=== PATIENT | male | born 1940 | race Caucasian/White ===

== ENCOUNTER 2018-02-04 11:53 | Outpatient (REF) | payer SELFPAY ==
[2018-02-05 11:59] LABS: Measles IgG Antibody Positive; Mumps Antibody IgG Positive; Rubella IgG Ab (UVM) Positive; Varicella IgG Antibody Positive
[2018-02-05 12:53] LABS: Hepatitis B Surface Ab Positive
[2018-02-08 15:18] LABS: TB Interpretation Negative (NEGAT)
== END 2018-02-04 12:13 ==
LOC: LBO 11:53
PROVIDERS: PCP Internal Medicine; Visit Provider Nurse Practitioner Family
DX: Z02.1 Encounter for pre-employment examination (principal); Z01.84 Encounter for antibody response examination; Z11.1 Encounter for screening for respiratory tuberculosis
CPT/HCPCS: 36415; 86706; 86787; 86480; 86735; 86762; 86765

== ENCOUNTER 2018-04-12 16:20 | Outpatient (REF) | payer MEDICARE, OTHER, SELFPAY ==
[2018-04-12 18:55] LABS: ALT 58 U/L (12-78); Anion Gap 8.9 mmol/L (3-11); BUN 21 mg/dL (7-18); CO2 28.1 mmol/L (21.0-32.0); CREATININE 1.21 mg/dL (0.70-1.30); Calcium 9.4 mg/dL (8.5-10.1); Chloride 102 mmol/L (98-107); Glucose 120 mg/dL (70-100); LDL CHOLESTEROL 91 mg/dL (<100); Sodium 139 mmol/L (136-145)
== END 2018-04-12 16:40 ==
LOC: NCHCN 16:20
PROVIDERS: PCP Internal Medicine; Visit Provider Internal Medicine
DX: E11.9 Type 2 diabetes mellitus without complications (principal); I10 Essential (primary) hypertension; E78.5 Hyperlipidemia, unspecified
CPT/HCPCS: 80048; 83721; 84460

== ENCOUNTER 2019-06-22 15:49 | Outpatient (REF) | payer MEDICARE, OTHER, SELFPAY ==
[2019-06-22 20:38] LABS: ALT 27 U/L (16-63); Anion Gap 8.3 mmol/L (3-11); BUN 19 mg/dL (7-18); CO2 29.7 mmol/L (21.0-32.0); CREATININE 1.07 mg/dL (0.70-1.30); Calcium 9.2 mg/dL (8.5-10.1); Chloride 101 mmol/L (98-107); Glucose 108 mg/dL (74-106); LDL CHOLESTEROL 85 mg/dL (<100); Potassium 4.3 mmol/L (3.5-5.1); Sodium 139 mmol/L (136-145)
== END 2019-06-22 16:09 ==
LOC: NCHCN 15:49
PROVIDERS: PCP Internal Medicine; Visit Provider Internal Medicine
DX: E11.40 Type 2 diabetes mellitus with diabetic neuropathy, unspecified (principal); I48.0 Paroxysmal atrial fibrillation; I10 Essential (primary) hypertension
CPT/HCPCS: 80048; 83721; 84460

== ENCOUNTER 2021-02-08 10:29 | Outpatient (CLI) | payer MEDICARE, OTHER, SELFPAY ==
--- NOTE | 2021-02-08 10:15 | RT.EKG_ITS ---
APPROVED REPORT Exam: Resting ECG Reason for Exam: MD Patient Location: O HR:66 bpm ECG Measurements Heart Rate 66 AXIS [place] 160 P 41 QRSd 92 QRS -25 QT 380 T -21 QTc 399 Conclusion Sinus rhythm...normal P axis, V-rate 50- 99 Inferior infarct, age indeterminate...Q>35mS, T neg, II III aVF Minimal ST elevation, anterior leads...ST >0.10mV, V1-V4
== END 2021-02-08 10:30 | disposition home or self-care (01) ==
LOC: DI.CARD 10:36
PROVIDERS: PCP Internal Medicine; Visit Provider Internal Medicine Cardiovascular Disease
DX: I21.4 Non-ST elevation (NSTEMI) myocardial infarction (principal)
CPT/HCPCS: 93010

== ENCOUNTER → 2021-02-08 10:35 | Outpatient (BNVA) | payer MEDICARE, OTHER, SELFPAY | PROVIDERS: PCP Internal Medicine; Referring Provider Internal Medicine; Visit Provider Internal Medicine Cardiovascular Disease | DX: I21.4 Non-ST elevation (NSTEMI) myocardial infarction (principal); I10 Essential (primary) hypertension | CPT/HCPCS: 93005; 99203 ==

== ENCOUNTER → 2021-06-13 10:26 | Outpatient (BNVA) | payer MEDICARE, OTHER, SELFPAY | PROVIDERS: PCP Internal Medicine; Referring Provider Internal Medicine; Visit Provider Internal Medicine Cardiovascular Disease | DX: I21.4 Non-ST elevation (NSTEMI) myocardial infarction (principal); I10 Essential (primary) hypertension | CPT/HCPCS: 99213 ==

== ENCOUNTER → 2022-01-16 10:26 | Outpatient (BNVA) | payer MEDICARE, OTHER, SELFPAY | PROVIDERS: PCP Internal Medicine; Referring Provider Internal Medicine; Visit Provider Internal Medicine Cardiovascular Disease | DX: I10 Essential (primary) hypertension (principal); I25.2 Old myocardial infarction; I25.10 Atherosclerotic heart disease of native coronary artery without angina pectoris; Z95.5 Presence of coronary angioplasty implant and graft; E11.9 Type 2 diabetes mellitus without complications | CPT/HCPCS: 99214 ==

== ENCOUNTER 2022-02-21 12:05 | Outpatient (REF) | payer MEDICARE, OTHER, SELFPAY ==
[2022-02-21 19:09] LABS: HCT 43.5 % (40.0-50.0); HGB 14.7 g/dL (13.5-17.5); MCH 30.5 pg (27.0-33.0); MCHC 33.8 % (32.0-36.0); MCV 90 fL (80-95); MPV 10.8 fL (8.0-11.0); Platelet Count 244 10^3/uL (130-400); RBC 4.82 10^6/uL (4.36-5.78); RDW 13.4 % (11.8-14.1); RDW-SD 44.2 fL; WBC 9.18 10^3/uL (4.4-10.8)
[2022-02-21 20:32] LABS: ALT 22 U/L (16-63); Anion Gap 8.4 mmol/L (3-11); BUN 22 mg/dL (7-18); C-Reactive Protein 0.14 mg/dL (0.0-0.3); CO2 28.6 mmol/L (21.0-32.0); CREATININE 1.2 mg/dL (0.70-1.30); Calcium 9.8 mg/dL (8.5-10.1); Calculated LDL 24 mg/dL (<100); Chloride 102 mmol/L (98-107); Cholesterol 93 mg/dL (<200); Estimated GFR 61.52 (mL/min/1.73m2); Glucose 71 mg/dL (74-106); HDL Cholesterol 41 mg/dL (40-60); Potassium 4.2 mmol/L (3.5-5.1); Sodium 139 mmol/L (136-145); Triglyceride 140 mg/dL (<150)
== END 2022-02-21 12:06 | disposition home or self-care (01) ==
LOC: NCHCN 12:05
PROVIDERS: PCP Internal Medicine; Visit Provider Internal Medicine
DX: E11.9 Type 2 diabetes mellitus without complications (principal); K21.9 Gastro-esophageal reflux disease without esophagitis; I48.0 Paroxysmal atrial fibrillation; Z98.61 Coronary angioplasty status
CPT/HCPCS: 80048; 80061; 85027; 84460; 86140

== ENCOUNTER 2022-10-21 07:59 | Outpatient (CLI) | payer MEDICARE, OTHER, SELFPAY ==
--- NOTE | 2022-10-21 07:45 | RT.EKG_ITS ---
APPROVED REPORT Exam: Resting ECG Reason for Exam: CAD Patient Location: O HR:83 bpm ECG Measurements Heart Rate 83 AXIS [place] [id number] P [id number] QRSd 81 QRS -6 QT 328 T 30 QTc 386 Conclusion Atrial fibrillation...V-rate 65-104, irreg A-activity Abnormal R-wave progression, early transition...QRS area>0 in V2
== END 2022-10-21 08:00 | disposition home or self-care (01) ==
LOC: DI.CARD 08:00
PROVIDERS: PCP Internal Medicine; Visit Provider Internal Medicine Cardiovascular Disease
DX: I25.10 Atherosclerotic heart disease of native coronary artery without angina pectoris (principal); I48.0 Paroxysmal atrial fibrillation
CPT/HCPCS: 93010

== ENCOUNTER → 2022-10-21 09:49 | Outpatient (BNVA) | payer MEDICARE, OTHER, SELFPAY | PROVIDERS: PCP Internal Medicine; Visit Provider Internal Medicine Cardiovascular Disease | DX: I48.0 Paroxysmal atrial fibrillation (principal); I25.10 Atherosclerotic heart disease of native coronary artery without angina pectoris; I10 Essential (primary) hypertension | CPT/HCPCS: 93005; 99214 ==

== ENCOUNTER 2023-04-08 15:54 | Outpatient (REF) | payer MEDICARE, OTHER, SELFPAY ==
[2023-04-08 19:55] LABS: HCT 40.7 % (40.0-50.0); HGB 14.3 g/dL (13.5-17.5); MCH 30.2 pg (27.0-33.0); MCHC 35.1 % (32.0-36.0); MCV 86 fL (80-95); MPV 10.9 fL (8.0-11.0); Platelet Count 231 10^3/uL (130-400); RBC 4.74 10^6/uL (4.36-5.78); RDW 13.4 % (11.8-14.1); RDW-SD 41.8 fL; WBC 10.23 10^3/uL (4.4-10.8)
[2023-04-08 20:06] LABS: ALT 26 U/L (16-63); Anion Gap 9.5 mmol/L (3-11); BUN 18 mg/dL (7-18); CO2 27.5 mmol/L (21.0-32.0); CREATININE 1.5 mg/dL (0.70-1.30); Calcium 9.8 mg/dL (8.5-10.1); Chloride 102 mmol/L (98-107); Creatine Kinase 97 U/L (39-308); Estimated GFR 46.77 (mL/min/1.73m2); Glucose 201 mg/dL (74-106); Potassium 3.7 mmol/L (3.5-5.1); Sodium 139 mmol/L (136-145)
[2023-04-08 20:21] LABS: Calculated LDL 4 mg/dL (<100); Cholesterol 87 mg/dL (<200); HDL Cholesterol 39 mg/dL (40-60); Triglyceride 221 mg/dL (<150)
== END 2023-04-08 15:55 | disposition home or self-care (01) ==
LOC: NCHCN 15:54
PROVIDERS: PCP Internal Medicine; Visit Provider Internal Medicine
DX: E78.5 Hyperlipidemia, unspecified (principal); E11.9 Type 2 diabetes mellitus without complications; Z79.01 Long term (current) use of anticoagulants; I48.0 Paroxysmal atrial fibrillation
CPT/HCPCS: 80048; 80061; 82550; 85027; 84460

== ENCOUNTER → 2023-04-21 09:50 | Outpatient (BNVA) | payer MEDICARE, OTHER, SELFPAY | PROVIDERS: PCP Internal Medicine; Referring Provider Internal Medicine; Visit Provider Internal Medicine Cardiovascular Disease | DX: Z79.01 Long term (current) use of anticoagulants (principal); I25.10 Atherosclerotic heart disease of native coronary artery without angina pectoris; I10 Essential (primary) hypertension; I48.0 Paroxysmal atrial fibrillation | CPT/HCPCS: 99214 ==

== ENCOUNTER → 2023-10-20 09:41 | Outpatient (BNVA) | payer MEDICARE, OTHER, SELFPAY | PROVIDERS: PCP Internal Medicine; Referring Provider Internal Medicine; Visit Provider Internal Medicine Cardiovascular Disease | DX: I21.4 Non-ST elevation (NSTEMI) myocardial infarction (principal); I10 Essential (primary) hypertension; I48.0 Paroxysmal atrial fibrillation; I25.10 Atherosclerotic heart disease of native coronary artery without angina pectoris | CPT/HCPCS: 99213 ==

== ENCOUNTER 2024-04-15 14:09 | Outpatient (REF) | payer MEDICARE, OTHER, SELFPAY ==
[2024-04-15 18:52] LABS: HCT 39.7 % (40.0-50.0); MCH 31.2 pg (27.0-33.0); MCHC 35.3 % (32.0-36.0); MCV 88 fL (80-95); MPV 11.1 fL (8.0-11.0); Platelet Count 246 10^3/uL (130-400); RBC 4.49 10^6/uL (4.36-5.78); RDW 12.9 % (11.8-14.1); RDW-SD 41.8 fL; WBC 8.42 10^3/uL (4.4-10.8)
[2024-04-15 19:10] LABS: ALT 27 U/L (16-63); AST 21 U/L (15-37); Albumin 3.6 g/dL (3.4-5.0); Alkaline Phosphatase 81 U/L (46-116); Anion Gap 8.6 mmol/L (3-11); BUN 18 mg/dL (7-18); Bilirubin, Total 2.23 mg/dL (0.2-1.0); CO2 30.4 mmol/L (21.0-32.0); CREATININE 1.5 mg/dL (0.70-1.30); Calcium 9.5 mg/dL (8.5-10.1); Calculated LDL 8 mg/dL (<100); Chloride 99 mmol/L (98-107); Cholesterol 98 mg/dL (<200); Estimated GFR 46.19 (mL/min/1.73m2); Glucose 227 mg/dL (74-106); HDL Cholesterol 46 mg/dL (40-60); Potassium 4.1 mmol/L (3.5-5.1); Sodium 138 mmol/L (136-145); Total Protein 7.2 g/dL (6.4-8.2); Triglyceride 221 mg/dL (<150)
== END 2024-04-15 14:10 | disposition home or self-care (01) ==
LOC: NCHCN 14:09
PROVIDERS: PCP Internal Medicine; Visit Provider Internal Medicine
DX: I10 Essential (primary) hypertension (principal)
CPT/HCPCS: 80053; 80061; 85027

== ENCOUNTER 2025-03-23 10:12 | Outpatient (CLI) | payer MEDICARE, OTHER, SELFPAY ==
--- NOTE | 2025-03-23 09:33 | DI.RAD_ITS ---
Exam(s) XR KNEE LT 4V AP,LAT,WIL,PAT EXAM: XR KNEE LT 4V AP,LAT,WIL,PAT CLINICAL HISTORY: OA L KNEE. TECHNIQUE: 2D digital imaging was performed. COMPARISON: CR LEFT KNEE LIMITED 1 OR 2 VIEWS from 06/09/2017 FINDINGS: Four views No evidence of fracture but there does appear to be a moderate size joint effusion, similar to previous. There is advanced narrowing of the medial compartment again noted and small marginal osteophyte off the medial condyle. The lateral compartment continues to exhibit normal height. There are mild-moderate degenerative changes in the patellofemoral compartment. There is no offset of the patella. Vascular calcification is noted in the popliteal artery and runoff vessels of the calf. IMPRESSION: Degenerative changes in the medial patellofemoral compartments, similar to 2018. Joint effusion again noted. This may signify no additional internal derangement. DATA REPOSITORY: RADIATION DOSE DELIVERED:
== END 2025-03-23 10:13 | disposition home or self-care (01) ==
LOC: DIORS 10:12
PROVIDERS: PCP Internal Medicine; Referring Provider Internal Medicine; Visit Provider Student in an Organized Health Care Education/Training Program
DX: M17.12 Unilateral primary osteoarthritis, left knee (principal); E11.9 Type 2 diabetes mellitus without complications
CPT/HCPCS: 99214; 36416; 83036; 73564

== ENCOUNTER 2025-04-05 09:38 | Outpatient (REF) | payer MEDICARE, SELFPAY ==
[2025-04-05 20:45] LABS: HCT 40.1 % (40.0-50.0); HGB 13.8 g/dL (13.5-17.5); MCH 30.2 pg (27.0-33.0); MCHC 34.4 % (32.0-36.0); MCV 88 fL (80-95); MPV 10.8 fL (8.0-11.0); Platelet Count 250 10^3/uL (130-400); RBC 4.57 10^6/uL (4.36-5.78); RDW 13.2 % (11.8-14.1); RDW-SD 41.9 fL; WBC 8.15 10^3/uL (4.4-10.8)
[2025-04-05 21:29] LABS: Anion Gap 7.1 mmol/L (3-11); BUN 21 mg/dL (9-23); CO2 25.9 mmol/L (20.0-31.0); Calcium 9.2 mg/dL (8.3-10.6); Chloride 105 mmol/L (98-107); Cholesterol 108 mg/dL (<200); Glucose 210 mg/dL (74-106); HDL Cholesterol 34 mg/dL (>40); Potassium 4.2 mmol/L (3.5-5.1); Sodium 138 mmol/L (136-145)
[2025-04-05 21:32] LABS: Microalb ug/mg Crea 383.2 ug/mg Cr
== END 2025-04-05 09:39 | disposition home or self-care (01) ==
LOC: NCHCN 09:38
PROVIDERS: PCP Internal Medicine; Visit Provider Nurse Practitioner
DX: E11.9 Type 2 diabetes mellitus without complications (principal)
CPT/HCPCS: 80048; 80061; 85027; 82043; 82570